=== PATIENT | female | born 2000 | race Hispanic/Latino ===

== ENCOUNTER 2021-06-16 09:51 | Emergency (ER) | payer SELFPAY ==
--- OUTSIDE RECORDS SUMMARY | 2021-06-16 09:54 | XMS REPORT | Continuity of Care Document ---
:2000 Author Organization [facility] t Address [address] [place] [address] Care Team Providers Name Role Phone Unavailable Unavailable Unavailable Problems Condition Condition Condition Status Onset Resolution Last Treating Co mments Source Name Details Category Date Date Treatment Clinician Date Right Right Diagnosis Active [facility] Pain, Pain, Diagnosis Active [facility] joint, [facility], [facility] knee, knee, [facility] right right l [facility]pat[facility] Clin[facility] Unspecifie Unspecifie Diagnosis Active [facility] internal d internal Dena kes - derangemen derangemen Me moria t of right t of right l knee knee Outpati ent Clinics Allergies, Adverse Reactions, Alerts This patient has no known allergies or adverse reactions. Medications Ordered Filled Start Stop Current Ordering Indication Dosage Frequency Signature Comments Components Source Medication Medication Date Date Medication? Clinician (SIG) Name Name Albuterol Albuterol Yes Monster USE [address] [facility] Sulfate Sulfate [place] [facility] - NEBULIZER [facility] EVERY 4 TO l 6 HOURS Outpati NEEDED ent Clinics Procedures This patient has no known procedures. Encounters Start End Encounter Admission Attending Care Care Encounter Source Date/Time Date/Time Type Type Clinicians Facility Department ID 2018-08-18 2018-08-18 Out[facility] [id number] [facility] 10:30[facility] 10[facility] 2018-07-21 2018-07-21 Outpatient [facility] [id number] [facility] 10:30[facility]00 10:30[facility]00 [facility] Clinics 2018-07-07 2018-07-07 [facility] [id number] [facility] 08:30[facility]00 08[facility]30[facility] Results This patient has no known results.
--- NOTE | 2021-06-16 15:08 | ER ---
Nurse's Notes [facility] Name: Sonya King Age: 21 yrs Sex: Female : 2000 Arrival Date: 06/16/2021 Time: 09:53 Bed Waiting Private MD: Diagnosis: SARS-associated coronavirus as the cause of diseases classified elsewhere;Cough;Acute pharyngitis, unspecified Presentation: 06/16 10:21 Chief complaint: Patient states: Pt states she has soar throught and cough for 2 days. da3 Pt states mom and sister are positive for COVID. Coronavirus screen: Client denies travel out of the [place] in the last 14 days. Client presents with at least one sign or symptom that may indicate coronavirus-19. The client reports previous COVID testing was negative. Ebola Screen: No symptoms or risks identified at this time. Initial Sepsis Screen: Does the patient meet any 2 criteria? Does the patient have a suspected source of infection?. 10:21 Method Of Arrival: Ambulatory da3 10:29 Acuity: NICOLE 4 da3 13:00 Risk Assessment: Do you want to hurt yourself or someone else? Patient reports no iw desire to harm self or others. Onset of symptoms was June 16, 2021. Triage Assessment: 10:26 General: Appears in no apparent distress. comfortable, well groomed, well nourished. da3 Historical: - Allergies: 10:26 No Known Allergies; da3 Screenin:59 Abuse screen: Denies threats or abuse. Denies injuries from another. Nutritional iw screening: No deficits noted. Tuberculosis screening: No symptoms or risk factors identified. Fall Risk None identified. Assessment: 12:58 General: Appears in no apparent distress. Behavior is calm, cooperative. Pain: iw Complains of pain in throat. Neuro: Level of Consciousness is awake, alert, obeys commands. Cardiovascular: Patient's skin is warm and dry. Respiratory: Airway is patent Respiratory effort is even, unlabored, Breath sounds are clear bilaterally. EENT: Throat is reddened. Musculoskeletal: Range of motion: intact in all extremities. Vital Signs: 10:21 BP 128 / 98; Pulse 86; Resp 18; Temp 98.1; Pulse Ox 100% on R/A; da3 10:27 BP 128 / 98; Pulse 86; Resp 18; Temp 98.1; Pulse Ox 100% on R/A; da3 ED Course: 09:53 Patient arrived in ED. mr 10:29 Triage completed. da3 11:47 Román Jolly PA is PHCP. cp 11:47 Rebel Singh MD is Attending Physician. cp 12:45 Jenny Lyons, RN is Primary Nurse. iw 13:00 Arm band placed on. iw 13:00 Patient has correct armband on for positive identification. iw 15:55 No provider procedures requiring assistance completed. Patient did not have IV access iw during this emergency room visit. Administered Medications: No medications were administered Outcome: 15:08 Discharge ordered by MD. cp 15:55 Discharged to home ambulatory. iw 15:55 Condition: good 15:55 Discharge instructions given to patient, Instructed on discharge instructions, follow up and referral plans. Demonstrated understanding of instructions, follow-up care. 15:56 Patient left the ED. iw Signatures: Irma Stevens mr Jenny Lyons, RN RN iw Román Jolly PA PA cp Nathan Escalante, RN RN da3
--- NOTE | 2021-06-16 15:09 | EDPHYS ---
Physician Documentation [facility] Name: Sonya King Age: 21 yrs Sex: Female : 2000 Arrival Date: 06/16/2021 Time: 09:53 Bed Waiting Private MD: ED Physician Rebel Singh HPI: 06/16 13:00 This 21 yrs old Female presents to ER via Ambulatory with complaints of Sore cp Throat, Cough. 13:00 The patient presents with sore throat, dysphagia, of both solids and liquids. Onset: cp The symptoms/episode began/occurred 2 day(s) ago. Associated signs and symptoms: Pertinent positives: cough, Pertinent negatives fever. 13:00 Patient reports close contact with mother and sister who recently tested positive for cp COVID-19. Historical: - Allergies: 10:26 No Known Allergies; da3 ROS: 13:05 Constitutional: Negative for fever, poor PO intake. cp 13:05 Eyes: Negative for injury, pain, redness, and discharge. cp 13:05 ENT: Positive for difficulty swallowing, sore throat, Negative for drainage from ear(s), ear pain, difficulty handling secretions. 13:05 Cardiovascular: Negative for chest pain. 13:05 Respiratory: Positive for cough, Negative for shortness of breath, wheezing. 13:05 Abdomen/GI: Negative for abdominal pain, nausea, vomiting, and diarrhea. 13:05 Skin: Negative for cellulitis, rash. 13:05 Neuro: Negative for altered mental status, dizziness, headache, weakness. 13:05 All other systems are negative. Exam: 13:10 Constitutional: The patient appears in no acute distress, alert, awake, non-toxic, well cp developed, well nourished. 13:10 Head/Face: Normocephalic, atraumatic. cp 13:10 Eyes: Periorbital structures: appear normal, Conjunctiva: normal, no exudate, no cp injection, Sclera: no appreciated abnormality, Lids and lashes: appear normal, bilaterally. 13:10 ENT: External ear(s): are unremarkable, Ear canal(s): are normal, TM's: bulging, is not appreciated, bilaterally, dullness, bilaterally, erythema, is not appreciated, bilaterally, Nose: is normal, Mouth: Lips: moist, Oral mucosa: moist, Posterior pharynx: Airway: no evidence of obstruction, patent, Tonsils: with erythema, no enlargement, no exudate, Uvula: midline, erythema, that is moderate, exudate, is not appreciated, Voice: is normal. 13:10 Neck: Lymph nodes: no appreciated lymphadenopathy. 13:10 Chest/axilla: Inspection: normal, Palpation: is normal, no crepitus, no tenderness. 13:10 Cardiovascular: Rate: normal, Rhythm: regular. 13:10 Respiratory: the patient does not display signs of respiratory distress, Respirations: normal, no use of accessory muscles, no retractions, labored breathing, is not present, Breath sounds: are clear throughout, no decreased breath sounds, no stridor, no wheezing. 13:10 Abdomen/GI: Exam negative for discomfort, distension, guarding, Inspection: abdomen appears normal. Vital Signs: 10:21 BP 128 / 98; Pulse 86; Resp 18; Temp 98.1; Pulse Ox 100% on R/A; da3 10:27 BP 128 / 98; Pulse 86; Resp 18; Temp 98.1; Pulse Ox 100% on R/A; da3 MDM: 12:47 Patient medically screened. cp 13:00 Differential diagnosis: apthous stomatitis, apthous ulcer, epiglottitis, di-peñaloza cp virus, group A strep tonsillitis, influenza, peritonsillar abscess pharyngitis, retropharyngeal abcess. 15:07 Data reviewed: vital signs, nurses notes, lab test result(s). cp 15:07 Counseling: I had a detailed discussion with the patient and/or guardian regarding: the historical points, exam findings, and any diagnostic results supporting the discharge/admit diagnosis, lab results, to return to the emergency department if symptoms worsen or persist or if there are any questions or concerns that arise at home. ED course: VSS. Patient appears non-toxic and no signs of respiratory distress. Will discharge to home for continued monitoring. 06/16 11:48 Order name: Strep; Complete Time: 15:11 cp 06/16 11:48 Order name: Influenza Screen (a \T\ B) 06/16 14:23 Order name: Throat Culture EDMS 06/16 15:06 Order name: SARS-COV-2 RT PCR; Complete Time: 15:11 EDMS Administered Medications: No medications were administered Disposition: 16:50 Co-signature as Attending Physician, Rebel Singh MD I agree with the assessment and kdr plan of care. Disposition Summary: 06/16/21 15:08 Discharge Ordered Location: Home cp Problem: new cp Symptoms: have improved cp Condition: Stable cp Diagnosis - SARS-associated coronavirus as the cause of diseases classified elsewhere cp - Cough cp - Acute pharyngitis, unspecified cp Followup: cp - With: Private Physician - When: 2 - 3 days - Reason: Worsening of condition Discharge Instructions: - Discharge Summary Sheet cp - Sore Throat cp - Cough, Adult cp - COVID-19 cp - Things to Know about the COVID-19 Pandemic - [facility] [place] - 10 Things You Can Do to Manage Your COVID-19 Symptoms at Home - [facility] [place] - COVID-19: Quarantine vs. Isolation - [facility] [place] cp Forms: - Medication Reconciliation Form cp - Thank You Letter cp - Antibiotic Education cp - Prescription Opioid Use cp - Work release form cp Prescriptions: - Tessalon Perles 100 mg Oral Capsule - take 2 capsule by ORAL route every 8 hours As needed; 20 capsule; Refills: 0, cp Product Selection Permitted - Lidocaine Viscous - take 5 milliliter by ORAL route every 4-6 hours As needed; 1 bottle; Refills: cp 0, Product Selection Permitted Signatures: Dispatcher [employer] EDRebel Hoff MD MD [facility] Román Jolly PA PA cp Nathan Escalante, RN RN da3 Corrections: (The following items were deleted from the chart) 13:57 11:49 CORONAVIRUS+LAB.BRZ ordered. EDVT EDMS
[2021-06-16 16:02] VITALS: BP 128/98; TEMP 98.1; O2SAT 100
== END 2021-06-16 15:56 | disposition home or self-care (01) ==
LOC: ER 09:51
DX: U07.1 COVID-19 (principal); J02.9 Acute pharyngitis, unspecified
CPT/HCPCS: 87070; 87081; 87804; U0003